=== PATIENT | male | born 1955 | race Caucasian/White ===

== ENCOUNTER 2017-07-27 08:43 | Day surgery (SDC) | payer OTHER ==
[~2017-07-27] VITALS: Ht 175.3 cm; Wt 75.0 kg
[2017-07-27 08:56] VITALS: BP 145/85; PULSE 80; RESP 20; TEMP 97.7; O2SAT 99
[2017-07-27] MEDS ORDERED: CARV25TA PO (08:58)
[2017-07-27] MEDS ORDERED: CALC0.25 PO (08:58)
[2017-07-27] MEDS ORDERED: APIX2.5T PO (08:58)
[2017-07-27] MEDS ORDERED: BUME2TAB PO (08:58)
[2017-07-27] MEDS ORDERED: METO10TA4 PO (08:58)
[2017-07-27] MEDS ORDERED: LEVO25TA4 PO (08:58)
[2017-07-27] MEDS ORDERED: FOLI400T PO (08:58)
[2017-07-27 09:51] LABS: AUTOMATED NEUTROPHIL # 3.3 TH/MM3 (1.8-7.7); BASOPHIL % 0.6 % (0.0-2.0); EOSINOPHIL # 0.2 TH/MM3 (0-0.4); EOSINOPHIL % 3.1 % (0.0-4.0); HEMATOCRIT 25.3 % (39.0-51.0); HEMO FLAGS DIFF FINAL; LYMPH % 18.8 % (9.0-44.0); MEAN CELL VOLUME 89.8 FL (80.0-100.0); MEAN CORPUSCULAR HEMOGLOBIN 32.1 PG (27.0-34.0); MEAN CORPUSCULAR HGB CONC 35.8 % (32.0-36.0); NEUT % 62.5 % (16.0-70.0); PLATELET COUNT 162 TH/MM3 (150-450); RED BLOOD COUNT 2.81 MIL/MM3 (4.50-5.90); RED CELL DISTRIBUTION WIDTH 14.9 % (11.6-17.2); WHITE BLOOD COUNT 5.3 TH/MM3 (4.0-11.0)
[2017-07-27] MEDS ORDERED: LIDOCAINE 1%/EPINEPHrine 1:100,000 SOLN 20 ML VIAL ONE (10:10)
[2017-07-27] MEDS ORDERED: MIDAZOLAM HCL 2 MG/2 ML VIAL ONE ×2 (10:26→10:53)
[2017-07-27 10:27] LABS: APTT (PATIENT) 30.3 SEC (24.3-30.1); INTERNATIONAL NORMALIZED RATIO 1.1 RATIO; PROTHROMBIN TIME - PATIENT 12.4 SEC (9.8-11.6)
--- NOTE | 2017-07-27 11:06 | PD.RAD ---
Post CT Procedure Prog Note Pre Procedure Diagnosis: (1) Multiple myeloma Post Procedure Diagnosis: (1) Multiple myeloma Procedure Date: Jul 27, 2017 Supervising Radiologist: Stefano Gomez Anesthesia: Conscious Sedation Plan of Activity Patient to Unit: [facility] Patient Condition: Good See PACS Report for procedural detail/treatment Stefano Gomez MD Jul 27, 2017 11:06
[2017-07-27 11:20] VITALS: BP 133/73; PULSE 68; RESP 20; TEMP 97.8; O2SAT 99
[2017-07-27 11:35] VITALS: BP 139/82; PULSE 73; RESP 18; O2SAT 98
[2017-07-27] MEDS ORDERED: SODIUM CHLOR 0.9% 1000 ML IV SCH (12:00)
[2017-07-27 12:05] VITALS: BP 124/79; PULSE 64; RESP 18; O2SAT 98
[2017-07-27 12:18] LABS: BONE MARROW PROCESSING COMPLETE; IRON STAIN DONE; JENNER GIEMSA STAIN DONE
[2017-07-27 12:30] VITALS: BP 121/79; PULSE 68; RESP 18; O2SAT 98
[2017-07-27 13:00] VITALS: BP 122/70; PULSE 61; RESP 18; O2SAT 99
--- NOTE | 2017-07-27 15:13 | RADRPT ---
EXAM DATE/TIME: 07/27/2017 10:38 [place] COMPARISON: No previous studies available for comparison. INDICATIONS : Mulitple myeloma. SEDATION TIME: 30 minutes BIOPSY SITE: Right pelvis MEDICATION(S): 1.) 6 mg midazolam (Versed) IV 2.) 300 mcg fentanyl (Sublimaze) IV DEVICE(S): 1.) 11 gauge Bone marrow biopsy needle MEDICAL HISTORY : Hypertension. SURGICAL HISTORY : None. ENCOUNTER: Initial ACUITY: 1 day PAIN SCORE: 0/10 LOCATION: Right pelvis A total of one core specimen(s) were obtained and sent to the laboratory for pathologic evaluation. PROCEDURE: 1. CT guided bone marrow biopsy. 2. Conscious sedation with continuous EKG and oximetry monitoring. Prior to the procedure informed consent was obtained. Any appropriate prior imaging studies were rev iewed. Using automated exposure control and adjustment of the mA and/or kV according to patient size , radiation dose was kept as low as reasonably achievable to obtain optimal diagnostic quality images . DICOM format image data is available electronically for review and comparison. The site was prepped in a sterile fashion. Full sterile technique was used, including cap, mask, anahy rile gloves and gown and a large sterile sheet. Hand hygiene and 2% chlorhexidine and/or betadine/al cohol prep was utilized per protocol for cutaneous antisepsis. The skin and subcutaneous tissues wer e infiltrated with local anesthetic solution. With CT guidance the previously identified target was localized. Biopsy was performed using the presc ribed needle as above. Following biopsy marrow aspiration was performed with repeat puncture. Adequa te hemostasis was obtained with compression at the puncture site. Follow-up CT scan reveals no hemorrhage. Conscious sedation was performed with the prescribed dosages and duration as above in the presence of an independent trained radiology nurse to assist in the monitoring of the patient. EKG and oximetry remained stable throughout the procedure. The patient tolerated the procedure well and there were no complications. The patient was sent to Radiology Outpatient Unit in stable condition. CONCLUSION: 1. Uncomplicated CT guided bone marrow aspirate. 2. Uncomplicated CT guided bone marrow biopsy. Stefano Gomez MD on July 27, 2017 at 15:09 Board Certified Radiologist. This report was verified electronically.
== END 2017-07-27 13:30 | disposition home or self-care (01) ==
LOC: HRAD 08:43 → HRIP 08:44 → HRAD 13:30
PROVIDERS: ATTEND Internal Medicine Hematology & Oncology
DX: C90.00 Multiple myeloma not having achieved remission (principal); I12.9 Hypertensive chronic kidney disease with stage 1 through stage 4 chronic kidney disease, or unspecified chronic kidney disease; N18.9 Chronic kidney disease, unspecified; D63.1 Anemia in chronic kidney disease; I48.91 Unspecified atrial fibrillation; E03.9 Hypothyroidism, unspecified
CPT/HCPCS: 38221; 77012; 85025; 85097; 85610; 85730; 88305; 88311; 88313; 88341; 88342; 99152; 99153; C1830; G0364; J2250; J3010; J7030